=== PATIENT | female | born 1945 ===

== ENCOUNTER 2016-07-07 11:14 | Observation (INO) | payer MEDICARE, BC ==
[2016-07-07 11:20] VITALS: BMI 30.9
--- NOTE | 2016-07-07 11:36 | CT ---
PROCEDURE: CT HEAD WITHOUT CONTRAST. HISTORY: CODE STROKE COMPARISON: None available. TECHNIQUE: Axial computed tomography images were obtained through the head/brain without intravenous contrast. Radiation dose: Total exam DLP = 779.86 mGy-cm. FINDINGS: HEMORRHAGE: No intracranial hemorrhage. BRAIN: No mass effect or edema. Minimal age-appropriate atrophy. Mild periventricular chronic microvascular white matter ischemic change. No evidence of acute infarct. VENTRICLES: Unremarkable. No hydrocephalus. CALVARIUM: Unremarkable. PARANASAL SINUSES: Unremarkable as visualized. No significant inflammatory changes. MASTOID AIR CELLS: Unremarkable as visualized. No inflammatory changes. OTHER FINDINGS: None. IMPRESSION: Normal CT of the Head. No intracranial hemorrhage. No intracranial mass or evidence of acute infarct. The findings in this examination were discussed by telephone with Dr. Mccoy at 11:30 a.m. on 07/07/2016.
--- NOTE | 2016-07-07 11:40 | EDPD ---
HPI Stroke - General Time Seen by Provider: 07/07/16 11:28 Historian: Patient - History of Present Illness Narrative History of Present Illness (Free Text): 07/07/16 11:31 71 year old female with a past medical history that includes anxiety, osteoporosis and peptic ulcer disease presents to the emergency department with blurry vision in the left eye and droopy sensation of the face that began three days ago. Patient states she experienced some blurry vision in the left eye three days ago and felt a little droopy on her face, both of which resolved spontaneously. Patient reports this morning she woke up with the same symptoms and came to the emergency room for further evaluation. rTPA Inclusion/Exclusion - Refusal of Treatment Patient Refused Treatment: No - Inclusion Criteria for Altepase Patient is 18 years or Older: Yes The Clinical Diagnosis of Ischemic Stroke That is Causing a Potentially Disabling Neurological Deficit: No Time of Onset is Well Established to be Less Than 270 Minute Before Treatment Would Begin: No Risk/Benefit Discussed With Patient/Family Member Present: No Past Medical History - Provider Review Nursing Documentation Reviewed: Yes - Infectious Disease Hx of Infectious Diseases: None - Tetanus Immunization Tetanus Immunization: Unknown - Past Medical History Past Medical History: Non-Contributing - Cardiac Hx Pacemaker: No - Pulmonary Hx Respiratory Disorders: No - Neurological Hx Paralysis: No - HEENT Hx HEENT Disorder: Yes Hx Cataracts: Yes - Renal Hx Renal Disorder: No - Endocrine/Metabolic Hx Endocrine Disorders: No - Hematological/Oncological Hx Blood Transfusions: No Hx Blood Transfusion Reaction: No - Integumentary Hx Dermatological Disorder: No - Musculoskeletal/Rheumatological Hx Musculoskeletal Disorders: No - Gastrointestinal Hx Gastrointestinal Disorders: Yes Hx Gastroesophageal Reflux: Yes Other/Comment: COLITIS - Genitourinary/Gynecological Hx Genitourinary Disorders: No Other/Comment: HYSTERECTOMY,L LUMPECTOMY - Psychiatric Hx Emotional Abuse: No Hx Physical Abuse: No Hx Substance Use: No - Past Surgical History Past Surgical History: No Previous - Surgical History Hx Cholecystectomy: Yes Hx Hysterectomy: Yes Other/Comment: bunionectomy, left lumpectomy - Anesthesia Hx Anesthesia Reactions: No Hx Malignant Hyperthermia: No - Suicidal Assessment Feels Threatened In Home Enviroment: No Family/Social History - Family/Social History Family History: Non-Contributory - DrPriscilla Review Nursing documentation reviewed.: Yes Allergies/Home Meds Allergies/Adverse Reactions: Allergies No Known Allergies Allergy (Verified 08/03/15 07:46) Home Medications: Home Meds Medication Instructions Recorded Confirmed ALPRAZolam 1 mg PO BID 06/26/15 08/06/15 Esomeprazole Magnesium [Nexium] 40 mg PO DAILY 06/26/15 08/06/15 Cholecalciferol (Vitamin D3) 2 tab PO DAILY 08/03/15 08/06/15 [D-2000 90 mg-2000 Iu] Review of Systems - Physician Review All systems were reviewed & negative as marked: Yes ED Stroke Physical Exam - Physical Exam Narrative Physical Exam (Text): - Review of Systems Constitutional: Normal. absent: Fatigue, Weight Change, Fevers Eyes: Normal ENT: Normal Respiratory: Normal absent: SOB, Cough, Sputum Cardiovascular: Normal absent: Chest pain, Palpitations, Syncope Gastrointestinal: Normal absent: Abdominal pain, Diarrhea, Nausea, Vomiting Genitourinary: Normal. absent: Dysuria, Frequency, Hematuria Musculoskeletal: Normal. absent: Arthralgias, Back Pain, Neck Pain Skin: Normal Neurological: Blurry vision, left facial droop Endocrine: Normal Hemo/Lymphatic: Normal Psychiatric: Normal - Physical exam Patient appears age appropriate, speaking full sentences without difficulty - Systems Exam Head: Present: Atraumatic, Normocephalic Pupils: Present: PERRL Extraocular Muscles: Present: EOMI Conjunctiva: Present: Normal Mouth: Present: Moist Mucous Membranes Neck: Present: Normal Range of Motion. No: MIDLINE TENDERNESS, Paraspinal Tenderness Respiratory/Chest: Present: Clear to Auscultation, Good Air Exchange. No: Respiratory Distress, Accessory Muscle Use, Tachypneic Cardiovascular: Present: Regular Rate and Rhythm, Normal S1, S2, Peripheral Pulses Present. No: Murmurs Abdomen: Present: Normal Bowel Sounds, No: Tenderness, Peritoneal Signs, Rebound, Guarding, Distention Back: Present: Normal Inspection. No: Midline Tenderness, Paraspinal Tenderness Upper Extremity: Present: Normal Inspection. No: Cyanosis, Edema Lower Extremity: Present: Normal Inspection. No: Edema Neurological: Present: GCS=15, Speech Normal, cranial nerves II through XII fully intact with no cerebellar abnormality, some asymmetry to the left side of the face, loss of left nasolabial fold. No: Pronator drift. Skin: Present: Warm, Dry, Normal Color. No: Rashes Lymphatic: Present: OX3, NI, NC Psychiatric: Present: Alert, Oriented x 3, Normal Insight, Normal Concentration Vital Signs Reviewed: Yes Blood Pressure: Hypotensive Pulse: Regular Respiratory Rate: Normal Appearance: Positive for: Well-Appearing, Non-Toxic, Comfortable Pain Distress: None Mental Status: Positive for: Alert and Oriented X 3 Medical Decision Making ED Course and Treatment: Impression: 73 year old female presents with blurry vision in left eye and left facial droop sensation. On physical exam, patient has mild asymmetry to left face and loss of left nasolabial fold. Differential Diagnosis include but are not limited to: CVA vs TIA Plan: -- CT Head -- Reassess and disposition Prior Visits: Notes and results from previous visits were reviewed. Patient last seen in the ED on 06/26/15 sore throat and difficulty swallowing and admitted for acute pharyngitis. CT Head IMPRESSION: Policy Writer Typist: Dr. Milton Brenner Normal CT of the Head. No intracranial hemorrhage. No intracranial mass or evidence of acute infarct. Progress Notes: 07/07/16 11:[address] Wilson who states patient is not a TPA candidate. Case discussed with Dr. Brenner, radiologist, who states there is no bleed. EKG shows NSR at [address]-segment elevations, normal intervals. with no prior for comparison. Interpreted by me. Chest x-ray read by me shows no pneumothorax, no pneumonia, no cardiomegaly, no infiltrates. 07/07/16 13:[address] Goodwin, accepted pt to her service pt with no new focal findings, in no distress, aware of and agrees with plan vision 20/25 b/l - RAD Interpretation Radiology Orders: 07/07/16 11:22 HEAD W/O (CODE STROKE) [CT] Stat 07/07/16 11:31 CHEST PORTABLE [RAD] Stat Laser Printing Operator: Radiologist - EKG Interpretation Interpreted by ED Physician: Yes Type: 12 lead EKG - Scribe Statement The provider has reviewed the documentation as recorded by the Leticia Lee Provider Scribe Attestation: All medical record entries made by the Jasperibe were at my direction and personally dictated by me. I have reviewed the chart and agree that the record accurately reflects my personal performance of the history, physical exam, medical decision making, and the department course for this patient. I have also personally directed, reviewed, and agree with the discharge instructions and disposition. NIHSS Scale ([place]) Time Performed: 11:31 - How Severe is the Stoke Baseline Level of Consciousness: 0=Alert LOC to Questions: 0=Both comments correct LOC to commands: 0=Obeys both correctly Best Gaze: 0=Normal Visual: 0=No visual loss Facial: 1=Minor asymmetry Motor Arm - Left: 0=No drift Motor Arm - Right: 0=No drift Motor Leg - Left: 0=No drift Motor Leg - Right: 0=No drift Limb Ataxia: 0=Absent Sensory: 0=Normal Best Language: 0=No aphasia Dysarthia: 0=Normal articulation Extinction & Inattention (Neglect): 0=Normal, no object Score: 1 Risk Level: Minor Stroke Risk Disposition/Present on Arrival - Present on Arrival Any Indicators Present on Arrival: No History of DVT/PE: No History of Uncontrolled Diabetes: No Urinary Catheter: No History Surgical Site Infection Following: None - Disposition Have Diagnosis and Disposition been Completed?: Yes Diagnosis: CVA (cerebral vascular accident) Disposition: HOSPITALIZED Disposition Time: 13:56 Patient Plan: Admission Condition: FAIR
[2016-07-07 12:11] LABS: ADD MANUAL DIFF? NO
--- NOTE | 2016-07-07 12:13 | RAD ---
HISTORY: cva COMPARISON: 06/26/2015 FINDINGS: LUNGS: No active pulmonary disease. PLEURA: No significant pleural effusion identified, no pneumothorax apparent. CARDIOVASCULAR: Normal. OSSEOUS STRUCTURES: No significant abnormalities. VISUALIZED UPPER ABDOMEN: Normal. OTHER FINDINGS: None. IMPRESSION: No active disease.
[2016-07-07 12:17] LABS: BASO # 0.03 K/mm3 (0.0-2.0); BASO % 0.5 % (0.0-3.0); EOS # 0.3 (0.0-0.7); EOS % 4.6 % (1.5-5.0); GRAN # 3.65 (1.4-6.5); GRAN % 57.4 % (50.0-68.0); HEMATOCRIT 43.1 % (36.0-48.0); LYMPH % 31.4 % (22.0-35.0); MEAN CELL VOLUME 79.2 fL (80.0-105.0); MEAN CORPUSCULAR HEMOGLOBIN 26.1 pg (25.0-35.0); MEAN CORPUSCULAR HGB CONC 32.9 g/dl (31.0-37.0); MEAN PLATELET VOLUME 10.4 fl (7.0-11.0); MONO # 0.4 (0.1-0.6); MONO % 6.1 % (1.0-6.0); PLATELET COUNT 274 10^3/uL (120.0-450.0); RED CELL DISTRIBUTION WIDTH 14.5 % (11.5-14.5); WHITE BLOOD COUNT 6.4 10^3/ul (4.5-11.0)
[2016-07-07 12:25] LABS: ALB/GLOB RATIO 1.3 (1.1-1.8); ALKALINE PHOSPHATASE 62 U/L (38-133); ALT/SGPT 47 U/L (7-56); AST/SGOT 44 U/L (15-39); BILIRUBIN,TOTAL 0.5 mg/dL (0.2-1.3); BLOOD UREA NITROGEN 17 mg/dL (7-21); CALCIUM 9.2 mg/dL (8.4-10.5); CARBON DIOXIDE 26 mmol/L (21-33); CHLORIDE 103 mmol/L (95-110); CHOLESTEROL 198 mg/dL (130-200); GFR AFRICAN-AMERICAN > 60; GLUCOSE,RANDOM 154 mg/dL (70-110); POTASSIUM 3.6 mmol/L (3.6-5.0); SODIUM 142 mmol/L (132-148); TOTAL PROTEIN 7.3 g/dL (5.8-8.3)
[2016-07-07 12:29] LABS: INR 0.98 (0.93-1.08); PARTIAL THROMBOPLASTIN TIME 24.1 Seconds (23.7-30.8)
[2016-07-07 12:56] LABS: TROPONIN I 0.02 ng/mL
--- NOTE | 2016-07-07 15:05 | CARD ---
APPROVED REPORT EKG Measurement Heart [id number] CA [id number] <Conclusion> Normal sinus rhythm Cannot rule out Anterior infarct, age undetermined Abnormal ECG
[2016-07-07] MEDS ORDERED: ALPRAZOLAM 1 MG PO SCH (19:30)
--- NOTE | 2016-07-07 19:44 | CON ---
DATE: 07/07/2016 CHIEF COMPLAINT: Recent history of blurry vision of the left eye and pain behind the left eye, as we ll as the left frontal and top of the head headache. HISTORY OF PRESENT ILLNESS: This is a 71-year-old woman with history of anxiety on alprazolam 1 mg p .o. b.i.d., osteoporosis, peptic ulcer disease, came to the Emergency Department because a few days a go on Thursday she said that she had blurry vision of the left eye and droopy sensation of the face and experienced blurred vision in the left eye, which resolved spontaneously. She woke up with simil ar symptoms of blurry vision in the left eye, as well as pain behind her left eye, as well as a left frontal headache. She denies any numbness or any paresthesias in her extremities. No change in sens e of taste or smell. No dysarthria or difficulty with her speech. She is walking around in the room currently and making her bed in her patient room. She denies any neck pain at this time. She is ve ry anxious. She says she has been very anxious over the past few weeks and depressed. She is on alp razolam 1 mg p.o. b.i.d. for anxiety. Currently, there is no facial droop seen on the left side. CT head showed no acute intracranial abnormalities. Her blood pressure is 166/92, respiratory rate is 18. PAST MEDICAL HISTORY: History of osteoporosis, history of anxiety disorder. MEDICATIONS: Reviewed via nurse's reconciliation sheet. ALLERGIES: No known drug allergies. SOCIAL HISTORY: No illicit drug use, smoking, or ETOH abuse. FAMILY HISTORY: Noncontributory. REVIEW OF SYSTEMS: A 14-point review of systems is negative, except the HPI. PHYSICAL EXAMINATION: VITAL SIGNS: Temperature 98.2, pulse rate of 64, blood pressure 166/92, respiratory rate of 18, oxyg en saturation 97% on room air. GENERAL: The patient is sitting up in bed, anxious looking. HEENT: Atraumatic, normocephalic. PERRLA. Extraocular muscles intact. NECK: Supple, no JVD, no adenopathy noted. LUNGS: Clear to auscultation. No adventitious sounds. HEART: S1, S2, normal rate and rhythm. No murmurs, rubs, or gallops. ABDOMEN: Soft, nontender, nondistended. Bowel sounds are present. EXTREMITIES: No clubbing, no cyanosis. Peripheral pulses 2+ felt bilaterally. NEUROLOGIC: The patient is anxious. The patient is alert, oriented to person, place, month and year . Her affect is flat. Poor attention span, slow thought process. Speech is fluent, without any err ors. Cranial nerves II through XII are intact. MOTOR: Moves all extremities equally. Toes downgoing bilaterally. SENSORY: Light touch, pinprick, proprioception, vibration is intact. DTRs are 2+ throughout. COORDINATION: [id number] intact. Gait is normal. LABORATORY DATA: Sodium is 142, potassium 3.6, chloride of 102, carbon dioxide 26, BUN of 17, creati nine 0.7. Random glucose of 154. A1c is 6, triglycerides 210, LDL is 116, cholesterol is 198. ASSESSMENT AND PLAN: This is a 71-year-old woman with a past medical history of osteoporosis and anx iety who came in with transient blurry vision of the left eye and pain behind her left eye, as well a s the left frontotemporal area. She denies any problems with her speech. She had a questionable, a few days ago, left facial droop sensation, but otherwise, no paresthesias in the extremities. Her ne uro exam is currently nonfocal besides her being anxious, therefore, causing her blood pressure to be slightly elevated. At this time, recommend: 1. An aspirin 81 mg p.o. daily. 2. Due to transient loss of blurry vision in the left eye, we will get a carotid Doppler to assess f or any carotid disease. 3. We will get an MRI of the brain without contrast to assess for any acute intracranial abnormaliti es. 4. Most likely, it is her anxiety disorder. In addition to alprazolam, I could consider to add rosey pentin 300 mg p.o. at bedtime, which will help partially with anxiety, as well as the headaches. At this time, could consider putting her hydrochlorothiazide for high blood pressure, will leave that fo r the primary care doctor. Continue with current present medical management. No further neurological workup needed at this time . Thank you for this consult. Miguel Wilson MD cc: [phone] TT: 07/07/2016 19:43:25 Confirmation # [id number] Dictation # [id number] mn
[2016-07-08 00:16] VITALS: RESP 20
[2016-07-08 06:20] VITALS: O2SAT 100
[2016-07-08] MEDS ORDERED: Pantoprazole 40 mg EC Tab PO SCH (06:30)
[2016-07-08 06:54] LABS: ADD MANUAL DIFF? NO
[2016-07-08 07:10] LABS: BASO # 0.05 K/mm3 (0.0-2.0); BASO % 0.7 % (0.0-3.0); EOS # 0.3 (0.0-0.7); EOS % 4.1 % (1.5-5.0); GRAN # 4.16 (1.4-6.5); GRAN % 56.9 % (50.0-68.0); HEMATOCRIT 42.1 % (36.0-48.0); LYMPH # 2.3 (1.2-3.4); MEAN CELL VOLUME 78.7 fL (80.0-105.0); MEAN CORPUSCULAR HEMOGLOBIN 25.4 pg (25.0-35.0); MEAN CORPUSCULAR HGB CONC 32.3 g/dl (31.0-37.0); MEAN PLATELET VOLUME 10.2 fl (7.0-11.0); MONO # 0.5 (0.1-0.6); MONO % 6.3 % (1.0-6.0); PLATELET COUNT 266 10^3/uL (120.0-450.0); RED CELL DISTRIBUTION WIDTH 14.5 % (11.5-14.5); WHITE BLOOD COUNT 7.3 10^3/ul (4.5-11.0)
[2016-07-08 07:20] LABS: ALB/GLOB RATIO 1.3 (1.1-1.8); ALKALINE PHOSPHATASE 67 U/L (38-133); ALT/SGPT 50 U/L (7-56); AST/SGOT 42 U/L (15-39); BILIRUBIN,TOTAL 0.8 mg/dL (0.2-1.3); BLOOD UREA NITROGEN 16 mg/dL (7-21); CALCIUM 8.8 mg/dL (8.4-10.5); CARBON DIOXIDE 26 mmol/L (21-33); CHLORIDE 103 mmol/L (98-107); GFR AFRICAN-AMERICAN > 60; GLUCOSE,RANDOM 114 mg/dL (70-110); PHOSPHOROUS 3.5 mg/dL (2.5-4.5); POTASSIUM 3.8 mmol/L (3.6-5.0); SODIUM 139 mmol/L (132-148)
[2016-07-08 07:28] LABS: FREE T4 1.02 ng/dL (0.78-2.19)
[2016-07-08 07:41] LABS: THYROID STIMULATING HORMONE 3.22 mIU/mL (0.46-4.68)
--- NOTE | 2016-07-08 08:08 | HP ---
HISTORY OF PRESENT ILLNESS: The patient is a 71-year-old who came to Emergency Room because of her b elow mentioned symptoms. She had blurry vision last night and she felt that her left side of the fac e is heavy and droopy. This has been going on intermittently for a day or 2. She did not pay very m uch attention. She went to bed last night, but this morning when she got up she experienced similar symptom of blurry vision in the left visual field and felt facial tingling and numbness. She came to Emergency Room for further evaluation. Denies any headache and does not have any trauma. Complaine d of feeling dizzy at times. No history of nausea or vomiting. No history of hemoptysis or hemateme sis. PAST MEDICAL HISTORY: Significant for: 1. Osteoporosis. 2. Anxiety disorder. 3. History of peptic ulcer disease. 4. Gastroesophageal reflux disease. 5. History of thyroid nodule. 6. Status post right thyroidectomy. PAST SURGICAL HISTORY: Significant for: 1. Cholecystectomy. 2. Hysterectomy. 3. Bilateral cataract extraction. 4. History of left hammertoe surgery. 5. Left breast lump resection and was found to have fibroadenoma. 6. Status post fine needle biopsy of thyroid nodule that was done in 07/2015 and shows colloid mater ial and abundant blood. Negative for cancer. ALLERGIES: She is not allergic to any medications. MEDICATIONS AT HOME: She is on Nexium 40 mg daily, Xanax 1 mg twice a day. SOCIAL HISTORY: Denies smoking, drinking or alcohol use. MEDICATIONS AT HOME: She is on Xanax, vitamin D and Nexium. REVIEW OF SYSTEMS: Significant for feeling weak and dizzy, lightheaded at times, and had facial numb ness and tingling. PHYSICAL EXAMINATION: GENERAL: The patient is awake and alert, communicative. VITAL SIGNS: She is afebrile, pulse 64, respirations 18, blood pressure 166/92. LUNGS: Bilateral good airflow, no rhonchi or crackle. HEART: S1, S2 audible. No murmur. ABDOMEN: Soft, nontender, no rebound, no guarding. NEUROLOGIC: She is awake and alert, communicative. Moves all extremities. Left nasolabial fold is relatively flat. EXTREMITIES: Bilateral legs, no edema, no ulcer. LABORATORY DATA: WBC 6.4, hemoglobin 14, hematocrit 43, platelet 274. PT 10.6, INR 0.98, PTT 24.1. Chemistry: Sodium 142, potassium 3.6, chloride 103, CO2 26, BUN 17, creatinine 0.7, blood sugar 154 . AST 44, ALT 47. Troponin is 0.02. Triglyceride is 210. EKG shows normal sinus rhythm. X-ray chest is unremarkable. CT scan of the head: Normal CT of the head. No intracranial hemorrhage, no intracranial mass, ____ mass. ASSESSMENT: 1. Probably transient ischemic attack. 2. Hypertension. 3. Hyperlipidemia. 4. Depression. 5. History of osteoporosis. 6. Peptic ulcer disease. PLAN: The patient will be placed in observation. Will order carotid Doppler and MRI of the brain. Will do cardiac monitoring. Start her on aspirin and statin. Start her on Norvasc. Will reevaluate the patient in the a.m. Encourage ambulation. Will also order for neuro check. Dr. Wilson has bee n consulted. Anthony Goodwin MD cc: [id number] TT: 07/08/2016 06:23:25 dilshad
--- NOTE | 2016-07-08 08:50 | US ---
PROCEDURE: Bilateral carotid artery duplex ultrasound HISTORY: Carotid stenosis TIA PHYSICIAN(S): Milton Escalante MD. TECHNIQUE: Duplex sonography and color-flow Doppler were used to evaluate the carotid bifurcations and limited segments of the vertebral arteries bilaterally. FINDINGS: There is mild smooth heterogeneous plaque noted at the carotid bifurcations bilaterally. The peak systolic velocity in the proximal right internal carotid artery is 86 cm/sec. This corresponds to a 20 to 39% proximal right ICA stenosis. Normal systolic velocities are noted in the proximal right external carotid artery. There is antegrade flow in the right vertebral artery. The peak systolic velocity in the proximal left internal carotid artery is 69 cm/sec. This corresponds to a 20 to 39% proximal left ICA stenosis. Normal systolic velocities are noted in the proximal left external carotid artery. There is antegrade flow in the left vertebral artery. IMPRESSION: 1. Bilateral 20-39% proximal ICA stenoses. 2. Antegrade flow in both vertebral arteries.
[2016-07-08] MEDS ORDERED: Gadodiamide 287 MG/ML VIAL (15ML) IV ONE (11:09)
[2016-07-08 12:30] VITALS: TEMP 98.4
--- NOTE | 2016-07-08 13:06 | MRI ---
PROCEDURE: MRI BRAIN WITH AND WITHOUT CONTRAST HISTORY: Left frontal headache COMPARISON: Noncontrast head CT from 07/07/2016 TECHNIQUE: Multiplanar, multisequence MR images of the brain were obtained with and without intravenous contrast enhancement. 15 mL gadolinium was injected intravenously FINDINGS: HEMORRHAGE: None DWI: No evidence of an acute or early subacute infarction. BRAIN PARENCHYMA: There are mild chronic microangiopathic changes. There is no mass, mass effect or abnormal extra-axial fluid collection. The midline sagittal structures are normal. ENHANCEMENT: No abnormal intracranial enhancement. VENTRICLES: The ventricles are normal in size, shape and configuration. CRANIUM: There is normal bone marrow signal pattern. ORBITS: Grossly unremarkable. PARANASAL SINUSES/MASTOIDS: Clear VASCULAR SYSTEM: There are normal signal voids in the larger intracranial arteries OTHER FINDINGS: None . IMPRESSION: 1. No acute intracranial abnormality. .2. Mild chronic microangiopathic changes.
[2016-07-08] MEDS ORDERED: Apap-Butalbital-Caffeine 325-50-40mg Tab PO STA (14:17)
--- NOTE | 2016-07-08 15:56 | CP.PCM.PN ---
Subjective - Date & Time of Evaluation Date of Evaluation: 07/08/16 Time of Evaluation: 14:00 - Subjective Subjective: Patient: CAREN HARP [facility] #:[id number] Unit: [id number] : 1945 Loc: 2RSO Room/Bed: 272-01 Age/Sex: 71 / F ADM Status: ADM IN ADM Date: DIS Date: Progress note: DATE: 07/08/2016 CHIEF COMPLAINT: Recent history of blurry vision of the left eye and pain behind the left eye, as well as the left frontal and top of the head headache. SUBJECTIVE: Patient seen and examined at bedside. No acute events overnight. MRI brain showed no acute abnormalities. Carotid doppler showed 20-39%proximal ICA stenosis. She is doing well. PAST MEDICAL HISTORY: History of osteoporosis, history of anxiety disorder. MEDICATIONS: Reviewed via nurse's reconciliation sheet. ALLERGIES: No known drug allergies. SOCIAL HISTORY: No illicit drug use, smoking, or ETOH abuse. FAMILY HISTORY: Noncontributory. REVIEW OF SYSTEMS: A 14-point review of systems is negative, except the HPI. PHYSICAL EXAMINATION: VITAL SIGNS: Reviewed. GENERAL: The patient is sitting up in bed, anxious looking. HEENT: Atraumatic, normocephalic. PERRLA. Extraocular muscles intact. NECK: Supple, no JVD, no adenopathy noted. LUNGS: Clear to auscultation. No adventitious sounds. HEART: S1, S2, normal rate and rhythm. No murmurs, rubs, or gallops. ABDOMEN: Soft, nontender, nondistended. Bowel sounds are present. EXTREMITIES: No clubbing, no cyanosis. Peripheral pulses 2+ felt bilaterally. NEUROLOGIC: The patient is anxious. The patient is alert, oriented to person, place, month and year. Her affect is flat. Poor attention span, slow thought process. Speech is fluent, without any errors. Cranial nerves II through XII are intact. MOTOR: Moves all extremities equally. Toes downgoing bilaterally. SENSORY: Light touch, pinprick, proprioception, vibration is intact. DTRs are 2+ throughout. COORDINATION: Llvdvt-sw-pufb intact. Gait is normal. LABORATORY DATA:Reviewed. MRI brain showed no acute abnormalities. Carotid doppler showed 20-39%proximal ICA stenosis. ASSESSMENT AND PLAN: This is a 71-year-old woman with a past medical history of osteoporosis and anxiety who came in with transient blurry vision of the left eye and pain behind her left eye, as well as the left frontotemporal area. She denies any problems with her speech. She had a questionable, a few days ago, left facial droop sensation, but otherwise, no paresthesias in the extremities. Symptoms are more of anxiety. Her neuro exam is currently nonfocal besides her being anxious, therefore, causing her blood pressure to be slightly elevated. MRI brain showed no acute abnormalities. Carotid doppler showed 20-39%proximal ICA stenosis. At this time, recommend: 1. An aspirin 81 mg p.o. daily. 2. Due to transient loss of blurry vision in the left eye, we will get a carotid Doppler to assess for any carotid disease. 3. Most likely, it is her anxiety disorder. In addition to alprazolam, I could consider to add gabapentin 300 mg p.o. at bedtime, which will help partially with anxiety, as well as the headaches. At this time, could consider putting her hydrochlorothiazide for high blood pressure, will leave that for the primary care doctor. Continue with current present medical management. No further neurological workup needed at this time. Thank you. Miguel Wilson MD Objective - Vital Signs/Intake and Output Vital Signs (last 24 hours): Temp Pulse Resp BP Pulse Ox 98.4 F 72 20 164/78 H 100 07/08/16 12:00 07/08/16 12:00 07/08/16 12:00 07/08/16 12:00 07/08/16 06:00 Intake and Output: 07/08/16 07/08/16 06:59 18:59 Intake Total 240 780 Output Total 2 Balance 238 780 - Medications Medications: Current Medications Acetaminophen (Tylenol 325mg Tab) 650 mg PO Q6H PRN PRN Reason: Fever >100.4 F Last Admin: 07/07/16 21:43 Dose: 650 mg Alprazolam (Xanax) 0.5 mg PO BID PRN; Protocol PRN Reason: Anxiety Last Admin: 07/08/16 13:50 Dose: 0.5 mg Aspirin (Aspirin Chewable) 81 mg PO DAILY [facility] Last Admin: 07/08/16 09:46 Dose: 81 mg Atorvastatin Calcium (Lipitor) 10 mg PO DIN [facility] Last Admin: 07/07/16 21:43 Dose: 10 mg Gabapentin (Neurontin) 300 mg PO HS [facility] PRN Reason: Protocol Lisinopril (Zestril) 10 mg PO DAILY [facility] Last Admin: 07/08/16 09:46 Dose: 10 mg Ondansetron HCl (Zofran Inj) 4 mg IVP Q6H PRN PRN Reason: Nausea/Vomiting Pantoprazole Sodium (Protonix Ec Tab) 40 mg PO 0630 [facility] Last Admin: 07/08/16 05:34 Dose: 40 mg - Labs Labs: 07/08/16 06:00 07/08/16 06:00 PT 10.6 Seconds (9.9-11.8) 07/07/16 12:10 INR 0.98 (0.93-1.08) 07/07/16 12:10 APTT 24.1 Seconds (23.7-30.8) 07/07/16 12:10
[2016-07-08 16:59] VITALS: BP 140/66; PULSE 74
--- NOTE | 2016-07-09 08:09 | DS ---
The patient is a 71-year-old, seen and examined, who has left facial tingling, had headaches, blurry vision. She states she feels a lot better, still has off and tingling on the left face. No weakness , no numbness, no nausea, no vomiting, no diarrhea. Anxious to go home. PHYSICAL EXAMINATION: VITAL SIGNS: She is afebrile. Pulse 72, respirations 20, blood pressure 140/66. LUNGS: Bilateral fair airflow, no rhonchi or crackle. HEART: S1, S2 audible. ABDOMEN: Soft, obese, nontender, no rebound, no guarding. NEUROLOGIC: She is awake and alert, communicative. Moves all extremities. LABORATORY EXAM: WBC 7.3, hemoglobin 13, hematocrit 42, platelets of 266. Chemistry: Blood sugar i s 114. She had MRI of the brain done that showed no acute intracranial abnormality, mild chronic jonna roangiopathic edema. ASSESSMENT AND PLAN: 1. Transient left eye visual field blurriness. Her carotid Doppler is unremarkable. The patient is being discharged home today on Aspirin 81 daily. 2. Anxiety disorder. 3. She will resume her medication that is Nexium, vitamin D, Xanax as needed, and Lipitor has been a dded. A prescription for Lipitor 10 mg daily and aspirin 81 daily has been given to the patient. 4. She will follow with her PMD. Anthony Goodwin MD cc: [phone] TT: 07/09/2016 08:09:22 sc
--- NOTE | 2016-07-09 10:08 | CARD ---
APPROVED REPORT EXAM: Two-dimensional and M-mode echocardiogram with Doppler and color Doppler. INDICATION DIZZINESS 2D DIMENSIONS Left Atrium (2D)3.2 (1.6-4.0cm)IVSd1.3 (0.7-1.1cm) LVDd4.0 (3.9-5.9cm)PWd1.1 (0.7-1.1cm) LVDs2.9 (2.5-4.0cm)FS (%) 26.8 % LVEF (%)52.9 (>50%) M-Mode DIMENSIONS Aortic Root3.00 (2.2-3.7cm)Aortic Cusp Exc.1.30 (1.5-2.0cm) Aortic Valve AoV Peak Uyjbfann305.0cm/Ciaran Peak GR.6mmHg Mitral Valve MV E Buaoozzs30.2cm/sMV A Vutuwgzu126.0cm/sE/A ratio0.8 TDI E/Lateral E'0.0E/Medial E'0.0 Tricuspid Valve TR Peak [id number]/sRAP [id number] Peak Gr.5mmHg [id number] LEFT VENTRICLE The left ventricle is normal size. There is borderline concentric left ventricular hypertrophy. The left ventricular function is normal.EFD-55% There is normal LV segmental wall motion. Transmitral Doppler flow pattern is Grade III-reversible restrictive diastolic dysfunction. No left ventricle thrombus noted on this study. There is no ventricular septal defect visualized. There is no left ventricular aneurysm. There is no mass noted in the left ventricle. RIGHT VENTRICLE The right ventricle is normal size. There is normal right ventricular wall thickness. The right ventricular systolic function is normal. ATRIA The left atrium size is normal. The right atrium size is normal. The interatrial septum is intact with no evidence for an atrial septal defect. AORTIC VALVE The aortic valve is calcified but opens well. The aortic valve is moderately to severely sclerotic. No aortic regurgitation is present. Aortic Sclerosis Vs Mild As MITRAL VALVE The mitral valve is thickened but opens well. Mitral regurgitation is trace. There is no mitral valve stenosis. There is no evidence of mitral valve prolapse. TRICUSPID VALVE The tricuspid valve is normal in structure. There is trace tricuspid regurgitation.RVSP-15 mmof Hg. There is no tricuspid valve stenosis. There is no tricuspid valve prolapse or vegetation. PULMONIC VALVE The pulmonary valve is normal in structure. There is no pulmonic valvular regurgitation. There is no pulmonic valvular stenosis. GREAT VESSELS The aortic root is normal in size. The ascending aorta is normal in size. The pulmonary artery is normal. The IVC is normal in size and collapses >50% with inspiration. PERICARDIAL EFFUSION There is no pleural effusion. There is no pericardial effusion. <Conclusion> Normal Chamber Size. EF-55% Trace MR/TR RVSP-15 mmof Hg.
== END 2016-07-08 17:01 | disposition home or self-care (01) ==
LOC: ED 11:14 → INTOOBSV 13:57 → ERH 13:57 → 2RSO 16:59
PROVIDERS: ADMIT Internal Medicine; ATTEND Internal Medicine
DX: H53.8 Other visual disturbances (principal); I10 Essential (primary) hypertension; E78.5 Hyperlipidemia, unspecified; F41.9 Anxiety disorder, unspecified; I65.23 Occlusion and stenosis of bilateral carotid arteries; M81.0 Age-related osteoporosis without current pathological fracture; K27.9 Peptic ulcer, site unspecified, unspecified as acute or chronic, without hemorrhage or perforation; F32.9 Major depressive disorder, single episode, unspecified; K21.9 Gastro-esophageal reflux disease without esophagitis; Z90.49 Acquired absence of other specified parts of digestive tract; Z90.710 Acquired absence of both cervix and uterus; Z98.41 Cataract extraction status, right eye; Z98.42 Cataract extraction status, left eye
CPT/HCPCS: 36415; 70450; 70553; 71010; 80053; 80061; 82948; 83036; 83735; 84100; 84439; 84443; 84484; 85025; 85610; 85730; 86850; 86900; 93005; 93306; 93880; 97116; 97162; 99285; A9579; G0378; G8978; G8979; G8980